=== PATIENT | female | born 1995 | race Caucasian/White ===

== ENCOUNTER 2024-10-17 23:19 | Emergency (ER) | payer BC ==
[2024-10-17 23:23] VITALS: TEMP 98.9
[2024-10-18 01:18] LABS: Basophils # (A) 0.02 10*3/uL (0.00-0.10); Basophils % (A) 0.2 %; Eosinophils # (A) 0.31 10*3/uL (0.04-0.35); Eosinophils % (A) 2.8 %; HCT 39.3 % (37.2-46.3); HGB 13.4 g/dL (12.0-15.0); Lymphocytes # (A) 2.86 10*3/uL (0.90-5.00); MCH 31.1 pg (27.0-32.0); MCHC 34.1 g/dL (32.0-37.0); MCV 91.2 fL (80.0-97.0); Mean Platelet Volume 10.5 fL (9.5-12.2); Monocytes % (A) 4.6 %; Neutrophils # (A) 7.26 10*3/uL (1.80-7.70); Neutrophils % (A) 66.1 %; Platelet Count 285 10*3/uL (140-440); RBC 4.31 10*6/uL (4.10-5.20); RDW 12.3 % (11.5-14.5); WBC 10.98 10*3/uL (4.50-10.00)
[2024-10-18] MEDS: SODIUM CHLORIDE 0.9% 1,000 ML IV ONE (01:18)
[2024-10-18 01:35] LABS: ALT 12 U/L (4-34); AST 21 U/L (14-36); African American GFR (CKD) >90 (>60 ml/min/1.73 sqM); Albumin 4.1 g/dL (3.5-5.0); Alkaline Phosphatase 41 U/L (38-126); Anion Gap 7 mmol/L; Blood Urea Nitrogen 7 mg/dL (7-17); Calcium 9.5 mg/dL (8.4-10.2); Carbon Dioxide 24 mmol/L (22-30); Chloride 103 mmol/L (98-107); Glucose 81 mg/dL (74-99); Non-African American GFR(CKD) >90 (>60 ml/min/1.73 sqM); Potassium 4.1 mmol/L (3.5-5.1); Sodium 134 mmol/L (137-145); Total Bilirubin 0.5 mg/dL (0.2-1.3); Total Protein 6.6 g/dL (6.3-8.2)
[2024-10-18 01:36] LABS: Appearance,Urine Clear (Clear); Bilirubin,Urine Negative (Negative); Blood,Urine Negative (Negative); Color,Urine Colorless; Glucose,Urine (UA) Negative (Negative); Ketones,Urine Negative (Negative); Leukocyte Esterase,Urine Negative (Negative); Nitrite,Urine Negative (Negative); PH, Urine 5.5 (5.0-8.0); Protein,Urine Negative (Negative); Specific Gravity,Urine 1.014 (1.001-1.035); Urobilinogen,Urine <2.0 mg/dL (<2.0)
--- NOTE | 2024-10-18 01:55 | US ---
EXAM: US First Trimester , Transabdominal and Transvaginal CLINICAL HISTORY: ITS.REASON US Reason: abd pain, positive test TECHNIQUE: Real-time transabdominal and transvaginal obstetrical ultrasound of the maternal pelvis and a first trimester with image documentation. Transvaginal imaging was used for better evaluation of the fetus and adnexa. COMPARISON: No relevant prior studies available. FINDINGS: Gestation: Single viable intrauterine gestational . Estimated age 8 weeks 6 days. Estimated delivery 05/24/2025. [place]-rump length measures 2.2 cm. heart rate 163 bpm. Placenta/amniotic fluid: Subchorionic hemorrhage measuring 1.3 x 0.8 x 1.4 cm. Uterus/cervix: Uterus measures 10.2 x 6.5 x 6.4 cm. No myometrial mass. Ovaries: Right ovary measures 2.4 x 2.4 x 1.8 cm. 1.9 cm corpus luteum right ovary. Left ovary measures 2.5 x 1.6 x 1.2 cm. No mass. Free fluid: No free fluid. IMPRESSION: Single viable intrauterine gestational . Estimated age 8 weeks 6 days. Estimated delivery 05/24/2025. Subchorionic hemorrhage measuring 1.3 x 0.8 x 1.4 cm.
--- NOTE | 2024-10-18 02:29 | ED ---
Abdominal Pain HPI - General Chief Complaint: Abdominal Pain Stated Complaint: constipation 9 weeks Time Seen by Provider: 10/17/24 23:20 Source: patient Mode of arrival: ambulatory Limitations: no limitations - History of Present Illness Initial Comments: 29-year-old female who is G3, P2 approximately 9 weeks who presents to the emergency department reporting constipation. States that she has not had a normal bowel movement in 11 days. She has had 2 episodes of very small stools. States that she does have mild lower abdominal pain but for the most part states that she has no sensation to have a bowel movement. Denies any rectal pain. She has been using Metamucil. She denies any black or bloody stools. No nausea or vomiting. States that she was nauseated last week and was taking Zofran. She denies any fevers. No dysuria, hematuria or difficulty voiding. She has not followed with her BLOOD DONOR RECRUITER SUPERVISOR yet. Has not had a ultrasound of this . Patient sent in from her OB office due to abdominal pain in . No other alleviating, precipitating or modifying factors - Related Data Allergies Allergy/AdvReac Type Severity Reaction Status Date / Time meperidine [From Demerol] AdvReac Dyspnea Verified 10/17/24 23:24 Review of Systems ROS Statement: Those systems with pertinent positive or pertinent negative responses have been documented in the HPI. ROS Other: All systems not noted in ROS Statement are negative. Past Medical History Past Medical History: No Reported History History of Any Multi-Drug Resistant Organisms: None Reported Additional Past Surgical History / Comment(s): oral surgery Past Psychological History: ADD/ADHD, Anxiety, Depression, PTSD Smoking Status: Never smoker Past Alcohol Use History: None Reported Past Drug Use History: None Reported General Exam Limitations: no limitations General appearance: alert, in no apparent distress Head exam: Present: atraumatic, normocephalic, normal inspection Eye exam: Present: normal appearance, PERRL, EOMI. Absent: scleral icterus, conjunctival injection, periorbital swelling ENT exam: Present: normal exam, mucous membranes moist Neck exam: Present: normal inspection. Absent: tenderness, meningismus, lymphadenopathy Respiratory exam: Present: normal lung sounds bilaterally. Absent: respiratory distress, wheezes, rales, rhonchi, stridor Cardiovascular Exam: Present: regular rate, normal rhythm, normal heart sounds. Absent: systolic murmur, diastolic murmur, rubs, gallop, clicks GI/Abdominal exam: Present: soft, normal bowel sounds. Absent: distended, tenderness, guarding, rebound, rigid Extremities exam: Present: normal inspection, full ROM, normal capillary refill. Absent: tenderness, pedal edema, joint swelling, calf tenderness Back exam: Present: normal inspection Neurological exam: Present: alert, oriented X3, CN II-XII intact Psychiatric exam: Present: normal affect, normal mood Skin exam: Present: warm, dry, intact, normal color. Absent: rash Course Vital Signs 10/17/24 10/18/24 23:20 02:37 Temperature 98.9 F Pulse Rate 99 85 Respiratory 18 17 Rate Blood Pressure 132/83 121/79 O2 Sat by Pulse 99 100 Oximetry Medical Decision Making - Medical Decision Making Was pt. sent in by a medical professional or institution (Dr. PA, ELEMENTARY READING TUTOR, urgent care, hospital, or alf...) When possible be specific @ -Patient was sent in from her BLOOD DONOR RECRUITER SUPERVISOR office Did you speak to anyone other than the patient for history (EMS, parent, family, police, friend...)? What history was obtained from this source @ -No Did you review nursing and triage notes (agree or disagree)? Why? @ -I reviewed and agree with nursing and triage notes Were old charts reviewed (outside hosp., previous admission, EMS record, old EKG, old radiological studies, urgent care reports/EKG's, alf records)? Report findings @ -No old charts were reviewed Differential Diagnosis (chest pain, altered mental status, abdominal pain women, abdominal pain men, vaginal bleeding, weakness, fever, dyspnea, syncope, headache, dizziness, GI bleed, back pain, seizure, CVA, palpatations, mental health, musculoskeletal)? @ -Differential Abdominal Pain Women: Appendicitis, Cholecystitis, diverticulosis, ischemic bowel, pancreatitis, hepatitis, UTI, gastroenteritis, AAA, incarcerated hernia, bowel obstruction, constipation, inflammatory bowel, hepatitis, peptic ulcer disease, splenic infarction, perforated viscus, vulvitis, ovarian torsion, PID, kidney stone, placenta abruption, this is not meant to be an all-inclusive list EKG interpreted by me (3pts min.). @ -Not done X-rays interpreted by me (1pt min.). @ -None done CT interpreted by me (1pt min.). @ -None done U/S interpreted by me (1pt. min.). @ -Yes and demonstrates a normal intrauterine What testing was considered but not performed or refused? (CT, X-rays, U/S, labs)? Why? @ -X-ray however patient is What meds were considered but not given or refused? Why? @ -None Did you discuss the management of the patient with other professionals (professionals i.e. , PA, ELEMENTARY READING TUTOR, lab, RT, psych nurse, social organization professor, artificial breeding ranch supervisor, teacher, budget officer, onsite case manager)? Give summary @ -No Was smoking cessation discussed for >3mins.? @ -No Was critical care preformed (if so, how long)? @ -No Were there social determinants of health that impacted care today? How? (Homelessness, low income, unemployed, alcoholism, drug addiction, transportat ion, low edu. Level, literacy, decrease access to med. care, penitentiary, rehab)? @ -No Was there de-escalation of care discussed even if they declined (Discuss DNR or withdrawal of care, Hospice)? DNR status @ -No What co-morbidities impacted this encounter? (DM, HTN, Smoking, COPD, CAD, Cancer, CVA, ARF, Chemo, Hep., AIDS, mental health diagnosis, sleep apnea, morbid obesity)? @ -None Was patient admitted / discharged? Hospital course, mention meds given and route, prescriptions, significant lab abnormalities, going to OR and other pertinent info. @ -Upon arrival patient seen and evaluated in bed 10. Thorough history and physical exam was performed. IV was established and patient was given a liter bolus of normal saline. Laboratory studies are conducted. Ultrasound was performed which demonstrates an intrauterine . I did discuss the possible treatment options. I recommended increased fiber intake from food, increase water intake and exercise. Patient may continue using Metamucil daily. Patient may take MiraLAX or Colace. I did provide her with 1 cup of milk of mag. Informed her that this is only used under the direction of her doctor and is to be not used frequency as it may lead to dehydration. Patient understood this. She is to follow-up with her BLOOD DONOR RECRUITER SUPERVISOR and return for any new or worsening symptoms. Patient agreeable to plan was discharged in stable condition Undiagnosed new problem with uncertain prognosis? @ -No Drug Therapy requiring intensive monitoring for toxicity (Heparin, Nitro, Insulin, Cardizem)? @ -No Were any procedures done? @ -No Diagnosis/symptom? @ -Acute constipation, acute abdominal pain, first trimester Acute, or Chronic, or Acute on Chronic? @ -Acute Uncomplicated (without systemic symptoms) or Complicated (systemic symptoms)? @ -Complicated Side effects of treatment? @ -No Exacerbation, Progression, or Severe Exacerbation? @ -No Poses a threat to life or bodily function? How? (Chest pain, [place], [place], pneumonia, PE, COPD, DKA, ARF, appy, cholecystitis, CVA, Diverticulitis, Homicidal, Suicidal, threat to staff... and all critical care pts) @ -No - Lab Data Result diagrams: 10/18/24 01:00 10/18/24 01:00 Lab Results 10/18/24 10/18/24 10/18/24 Range/Units 01:00 01:00 01:18 WBC 10.98 H (4.50-10.00) 10*3/uL RBC 4.31 (4.10-5.20) 10*6/uL Hgb 13.4 (12.0-15.0) g/dL Hct 39.3 (37.2-46.3) % MCV 91.2 (80.0-97.0) fL MCH 31.1 (27.0-32.0) pg MCHC 34.1 (32.0-37.0) g/dL Plt Count 285 (140-440) 10*3/uL MPV 10.5 (9.5-12.2) fL Immature Gran % (Auto) 0.3 % Neutrophils % 66.1 % Lymphocytes % 26.0 % Monocytes % 4.6 % Eosinophils % 2.8 % Basophils % 0.2 % Immature Gran # 0.03 (0.00-0.04) 10*3/uL Neutrophils # 7.26 (1.80-7.70) 10*3/uL Lymphocytes # 2.86 (0.90-5.00) 10*3/uL Monocytes # 0.50 (0.20-1.00) 10*3/uL Eosinophils # 0.31 (0.04-0.35) 10*3/uL Basophils # 0.02 (0.00-0.10) 10*3/uL Sodium 134 L (137-145) mmol/L Potassium 4.1 (3.5-5.1) mmol/L Chloride 103 (98-107) mmol/L Carbon Dioxide 24 (22-30) mmol/L Anion Gap 7 mmol/L BUN 7 (7-17) mg/dL Creatinine 0.57 (0.52-1.04) mg/dL Est GFR (CKD-EPI)AfAm >90 (>60 ml/min/1.73 sqM) Est GFR (CKD-EPI)NonAf >90 (>60 ml/min/1.73 sqM) Glucose 81 (74-99) mg/dL Calcium 9.5 (8.4-10.2) mg/dL Total Bilirubin 0.5 (0.2-1.3) mg/dL AST 21 (14-36) U/L ALT 12 (4-34) U/L Alkaline Phosphatase 41 (38-126) U/L Total Protein 6.6 (6.3-8.2) g/dL Albumin 4.1 (3.5-5.0) g/dL HCG, Quant 898425.0 mIU/mL Urine Color Colorless Urine Appearance Clear (Clear) Urine pH 5.5 (5.0-8.0) Ur Specific [place] 1.014 (1.001-1.035) Urine Protein Negative (Negative) Urine Glucose (UA) Negative (Negative) Urine Ketones Negative (Negative) Urine Blood Negative (Negative) Urine Nitrite Negative (Negative) Urine Bilirubin Negative (Negative) Urine Urobilinogen <2.0 (<2.0) mg/dL Ur Leukocyte Esterase Negative (Negative) Disposition Clinical Impression: Constipation during Disposition: HOME SELF-CARE Condition: Stable Instructions (If sedation given, give patient instructions): Constipation (DC) Additional Instructions: Please try the milk of mag to move your bowels. I recommend increasing fluid intake, exercise, eating foods high in fiber as well as taking the Metamucil daily. You may also take the Colace daily. Follow-up with your primary care doctor and return for any new or worsening symptoms Is patient prescribed a controlled substance at d/c from ED?: No Referrals: Krystal Marcano DO [Primary Care Provider] - 1-2 days Buster Linder DO [REFERRING] - 1-2 days Time of Disposition: 02:29
[2024-10-18] MEDS: MAGNESIUM HYDROXIDE 2,400 MG/30 ML CUP PO STA (02:33)
[2024-10-18 02:38] VITALS: BP 121/79; PULSE 85; RESP 17
== END 2024-10-18 02:38 | disposition home or self-care (01) ==
LOC: EC 23:19
DX: O99.611 Diseases of the digestive system complicating pregnancy, first trimester (principal); K59.00 Constipation, unspecified; Z88.5 Allergy status to narcotic agent; Z3A.09 9 weeks gestation of pregnancy
CPT/HCPCS: 36415; 76801; 76817; 80053; 81003; 84702; 85025; 96360; 99284